=== PATIENT | male | born 1955 | race Caucasian/White ===

== ENCOUNTER → 2018-01-28 | Outpatient (CLI) | payer OTHER | LOC: FIMAGING 06:23 | PROVIDERS: ATTEND Surgery | DX: N20.0 Calculus of kidney (principal); Z90.49 Acquired absence of other specified parts of digestive tract; K44.9 Diaphragmatic hernia without obstruction or gangrene; K21.9 Gastro-esophageal reflux disease without esophagitis ==

== ENCOUNTER → 2018-02-11 | Outpatient (CLI) | payer OTHER | LOC: FIMAGING 14:36 | PROVIDERS: ATTEND Urology | DX: N20.0 Calculus of kidney (principal); I87.8 Other specified disorders of veins ==

== ENCOUNTER 2018-02-26 08:27 | Emergency (ER) | payer OTHER ==
--- NOTE | 2018-02-26 08:40 | EDPHY ---
General Time Seen by Provider: 02/26/18 08:37 Narrative: CHIEF COMPLAINT: Flank pain HISTORY OF PRESENT ILLNESS: Patient presents with complaints of right flank pain. It was sudden onset this morning just prior to arrival. He had just had laboratory studies drawn for preoperative workup for a scheduled hiatal hernia repair on Wednesday. He was feeling well when he left, but while driving he had a sudden onset of pain in the right flank. It is severe, 10/10. Constant. Associated with nausea, vomiting diarrhea. No position of comfort. No chest pain shortness of breath. No abdominal pain. No testicular pain. No other associated complaints or modifying factors. REVIEW OF SYSTEMS: Ten systems reviewed and are negative unless otherwise noted in the HPI PCP: [facility] SPECIALISTS: Dr. Ramirez, Urology Dr. Jackson, General surgery PAST MEDICAL HISTORY: BPH, hiatal hernia, nephrolithiasis, hypertension PAST SURGICAL HISTORY: No recent. Scheduled for Shima fundoplication on Wednesday SOCIAL HISTORY: Non smoker. Works here at [employer] FAMILY HISTORY: non contributory EXAMINATION General Appearance: Alert, no distress Head: normocephalic, atraumatic Eyes: Pupils equal and round, no conjunctival pallor or injection ENT, Mouth: Mucous membranes moist Neck: Normal inspection, supple, non-tender Respiratory: Lungs are clear to auscultation Cardiovascular: Regular rate and rhythm Gastrointestinal: Abdomen is soft and nontender. No distention or tympany. There is moderate right CVA tenderness. No guarding of the abdomen Back: non-tender, no bony abnormalities Neurological: A&O, nonfocal, normal gait Skin: Warm and dry, no rash no petechiae or purpura. No ecchymosis Extremities: Nontender, no pedal edema Psychiatric: Mood and affect normal DIFFERENTIAL DIAGNOSES: Including but not limited to renal colic, ureteral stones, cholecystitis, cholelithiasis, colitis, UTI, pyelonephritis MDM: 8:45 a.m. Right flank pain with history exam that suggest renal colic. Patient has extensive experience with this and underwent lithotripsy on the 09 of February with no improvement. He has a benign abdominal exam with moderate right CVA tenderness otherwise. He is in no acute distress but does appear to be in significant pain, thus I have ordered IV pain medication, lidocaine, fluids and laboratory studies. 9:12 a.m. Patient re-evaluated. Pain has minimally improved. His initial IV is infusing fluids, thus a 2nd IV is being placed for IV fluid resuscitation. We will continue to medicate him. 9:40 a.m. Patient's creatinine is 1.1. He has yet been able to provide a urine sample. I have re-evaluated the patient and ordered Toradol as his pain is not yet improving. He just received his 2nd dose of Dilaudid IV. 10:20 a.m. Patient has received 2 L IV fluid resuscitation and is not yet able to urinate. We will perform bladder scanner. I have re-evaluated at this time and his pain is significantly improved. 10:50 a.m. Patient has provided a urine sample. The bladder scan showed minimal urine in the bladder. He is actively vomiting at this time and does not feel that he is able to go home. I will discuss with his urologist 11:40 a.m. I have not yet discussed the case with Urology as were waited call. The patient is asking for CT scan at this time. 12:45 p.m. Notified by radiologist Dr. Berman. CT scan reveals a 6 mm stone in the proximal right ureter with mild hydronephrosis. 12:50 p.m. Patient re-evaluated and I have discussed the case with the on-call urologist Dr. Rojas. The patient is feeling well enough that he would like to go home. Mildly nauseated but his pain is currently 1/10. The CT scan results were discussed with him. I did offer admission to the hospital for pain control but he would like to go home. He says that he is competent that he will be able to pass this at home. He will be provided a prescription of pain medication nausea medication. Strict ED precautions for difficulty urinating, increasing flank pain, fever or chills. Both he and his spouse are comfortable this plan. He is discharged home stable condition. SUPERVISION: Patient was independently examined, but I discussed the case with my secondary supervising physician Dr. Cook - Diagnostics Imaging Results: Imaging Impressions Abdomen/Pelvis CT 02/26/18 11:40 Impression:1. Obstructing right ureteral stone in a patient with bilateral nephrolithiasis. 2. Diverticulosis without evidence of diverticulitis. 3. Normal appendix. 4. Stable benign lytic lesions in L3 and L1 vertebral bodies. These were felt to represent hemangiomas on MRI of May 2015. Results called and discussed with uQoc Davis, at 02/26/2018 12:40 Attention: This CT examination is specifically designed to evaluate patients who are clinically suspected of having acute obstructive uropathy. This examination does not use radiographic contrast, and as such, provides only a limited evaluation of the abdomen, pelvis and retroperitoneum. If there is further clinical suspicion for pathological conditions other than obstructive uropathy, a complete CT evaluation of the abdomen and pelvis utilizing intravenous, oral, and rectal contrast should be considered. General information for patients regarding this examination can be found at [email or web address]. If you have questions or comments about this report, please contact me at (hospital) or [phone] (cell). - History Smoking Status: Never smoked - Objective Vital Signs: Initial Vital Signs Temperature (C) 97.9 F 02/26/18 08:31 Heart Rate 64 02/26/18 08:31 Respiratory Rate 16 02/26/18 08:31 Blood Pressure 137/80 H 02/26/18 08:31 O2 Sat (%) 97 02/26/18 08:31 O2 Delivery Mode Room Air O2 (L/minute) 2 Allergies/Adverse Reactions: No Known Allergies Allergy (Verified 02/26/18 08:30) Home Medications: Medication Instructions Recorded Lisinopril [Zestril 10 mg (*)] 10 mg PO DAILY 03/27/11 Tamsulosin HCl [Flomax] 0.4 mg PO BID 03/27/11 Finasteride 06/16/15 Omeprazole 06/16/15 Ondansetron Odt [Zofran Odt] 4 mg PO Q4PRN PRN #4 tab 06/16/15 Ondansetron Odt [Zofran Odt 4 mg 4 mg PO Q6 PRN #12 tab 02/26/18 (*)] oxyCODONE HCL/ACETAMINOPHEN 1 each PO Q4-6PRN PRN #13 tablet 02/26/18 [Percocet 5-325 mg Tablet] Laboratory Results: Laboratory Results 02/26/18 08:55 02/26/18 02/26/18 10:48 08:55 Sodium 140 mEq/L mEq/L (135-145) Potassium 4.5 mEq/L mEq/L (3.5-5.2) Chloride 106 mEq/L mEq/L (97-110) Carbon Dioxide 22 mEq/l mEq/l (22-31) Anion Gap 12 mEq/L mEq/L (8-16) BUN 22 mg/dL mg/dL (7-23) Creatinine 1.1 mg/dL mg/dL (0.7-1.3) Estimated GFR > 60 Glucose 129 mg/dL H mg/dL (70-100) Calcium 9.2 mg/dL mg/dL (8.5-10.4) Total Bilirubin 0.7 mg/dL mg/dL (0.1-1.4) Conjugated Bilirubin 0.4 mg/dL mg/dL (0.0-0.5) Unconjugated Bilirubin 0.3 mg/dL mg/dL (0.0-1.1) AST 31 IU/L IU/L (17-59) ALT 47 IU/L IU/L (21-72) Alkaline Phosphatase 46 IU/L IU/L (38-126) Total Protein 6.8 g/dL g/dL (6.3-8.2) Albumin 4.0 g/dL g/dL (3.5-5.0) Lipase 63 IU/L IU/L (23-300) Urine Color YELLOW Urine Appearance HAZY Urine pH 5.0 (5.0-7.5) Ur Specific [place] 1.023 (1.002-1.030) Urine Protein NEGATIVE (NEGATIVE) Urine Ketones NEGATIVE (NEGATIVE) Urine Blood 3+ H (NEGATIVE) Urine Nitrate NEGATIVE (NEGATIVE) Urine Bilirubin NEGATIVE (NEGATIVE) Urine Urobilinogen NEGATIVE EU EU (0.2-1.0) Ur Leukocyte Esterase NEGATIVE (NEGATIVE) Urine RBC 50-182 /hpf H /hpf (0-3) Urine WBC 3-5 /hpf H /hpf (0-3) Ur Epithelial Cells TRACE /lpf /lpf (NONE-1+) Urine Bacteria NONE SEEN /hpf /hpf (NONE SEEN) Urine Mucus 3+ /lpf H /lpf (NONE-1+) Urine Glucose NEGATIVE (NEGATIVE) Medications Given: Discontinued Medications Hydromorphone HCl (Dilaudid) 1 mg IVP EDNOW ONE Stop: 02/26/18 08:46 Last Admin: 02/26/18 09:02 Dose: 0.5 mg Hydromorphone HCl (Dilaudid) 1 mg IVP EDNOW ONE Stop: 02/26/18 09:38 Last Admin: 02/26/18 09:40 Dose: 1 mg Hydromorphone HCl (Dilaudid) 1 mg IVP EDNOW ONE Stop: 02/26/18 11:47 Last Admin: 02/26/18 11:59 Dose: 1 mg Sodium Chloride (Ns) 1,000 mls @ 0 mls/hr IV EDNOW ONE; Wide Open PRN Reason: Protocol Stop: 02/26/18 08:46 Last Admin: 02/26/18 09:24 Dose: 1,000 mls Lidocaine HCl 100 mg/ Sodium (Chloride) 110 mls @ 600 mls/hr IV EDNOW ONE Stop: 02/26/18 08:55 Last Admin: 02/26/18 09:24 Dose: 110 mls Ketorolac Tromethamine (Toradol) 15 mg IVP EDNOW ONE Stop: 02/26/18 09:41 Last Admin: 02/26/18 09:46 Dose: 15 mg Ondansetron HCl (Zofran) 4 mg IVP EDNOW ONE Stop: 02/26/18 08:46 Last Admin: 02/26/18 09:01 Dose: 4 mg Ondansetron HCl (Zofran) 4 mg IVP EDNOW ONE Stop: 02/26/18 10:51 Last Admin: 02/26/18 11:15 Dose: 4 mg Departure - Departure Disposition: Home, Routine, Self-Care Clinical Impression: Renal colic on right side, Ureteral stone with hydronephrosis Condition: Good Instructions: Renal Colic (ED), Hydronephrosis (ED), Ureteral Stones (ED), Ureteral Stent Placement (DC) Additional Instructions: 1. Pain medication as discussed as needed 2. Increase fluid intake 3. Continue your Flomax as previously prescribed 4. Contact your established urologist on Wednesday morning for further care 5. ED precautions for worsening pain, fever, nausea, vomiting or difficulty urinating Referrals: DENZEL MARTIN MD [Other] - As per Instructions Meredith Tatum MD [Medical Doctor] - As per Instructions Prescriptions: Ondansetron Odt [Zofran Odt 4 mg (*)] 4 mg PO Q6 PRN #12 tab PRN Reason: Nausea/Vomiting, Use 1st oxyCODONE HCL/ACETAMINOPHEN [Percocet 5-325 mg Tablet] 1 each PO Q4-6PRN PRN # 13 tablet PRN Reason: Pain, Breakthrough
[2018-02-26] MEDS ORDERED: NS 1,000 ML IV ONE (08:45)
[2018-02-26] MEDS ORDERED: LIDOCAINE 1% 100 MG in NS 100 ML IV ONE (08:45)
[2018-02-26] MEDS ORDERED: ONDANSETRON 4 MG/2 ML VIAL IVP ONE ×2 (08:45→10:50)
[2018-02-26] MEDS ORDERED: HYDROmorphONE/DILAUDID 1 MG/ML INJ IVP ONE (08:45)
[2018-02-26] MEDS ORDERED: HYDROmorphONE/DILAUDID 2 MG/ML INJ ONE (08:59)
[2018-02-26] MEDS ORDERED: HYDROmorphONE/DILAUDID 2 MG/ML INJ IVP ONE ×2 (09:37→11:46)
[2018-02-26] MEDS ORDERED: KETOROLAC 15 MG/1 ML SDV IVP ONE (09:40)
[2018-02-26 13:06] VITALS: BP 136/78
== END 2018-02-26 13:06 | disposition home or self-care (01) ==
DX: N23 Unspecified renal colic (principal); N13.2 Hydronephrosis with renal and ureteral calculous obstruction; E86.9 Volume depletion, unspecified; I10 Essential (primary) hypertension
CPT/HCPCS: 96374; J1170; J1885; J2405

== ENCOUNTER 2018-03-01 08:00 | Observation (INO) | payer OTHER ==
--- NOTE | 2018-03-14 13:13 | GHP ---
[f rep st] PREOP HISTORY AND PHYSICAL DATE OF ADMISSION: 03/15/2018 HISTORY OF PRESENT ILLNESS: The patient is a 62-year-old male who was incidentally found to have a l arge hiatal hernia on a CT scan performed to evaluate renal lithiasis. He does report about 15 years of GERD symptoms characterized by substernal burning. These are becoming less and less controlled w ith omeprazole, which used to work well. He does avoid spicy foods and sleeps with the head of his b ed elevated. He has a past abdominal surgical history of cholecystectomy. He saw us in the office, and we ordered an upper GI series, which shows a moderate sized sliding-type hiatus hernia with mild gastroesophageal reflux. He does have a few tertiary contractions of the esophagus and no definite u lcerations or peptic ulcer disease. He is now here for laparoscopic hiatal hernia repair with Shima fundoplication. Of note, he was scheduled for surgery earlier in the year; however, this was postpo danni due to his renal lithiasis problems. PAST MEDICAL HISTORY: High blood pressure, benign prostatic hyperplasia, GERD, renal lithiasis. PAST SURGICAL HISTORY: Two right shoulder surgeries, left knee scope, cholecystectomy, kidney stone retrieval. MEDICATIONS: Avodart, Flomax, omeprazole, lisinopril. ALLERGIES: No known drug allergies. SOCIAL HISTORY: He is a never smoker. He works in the [employer]. He is and has 2 adult children. FAMILY HISTORY: Noncontributory. REVIEW OF SYSTEMS: 10-point review of systems includes joint pain, high blood pressure, kidney stone s, blood in urine, and frequent urination. PHYSICAL EXAM: GENERAL APPEARANCE: Reveals a 62-year-old male, alert and oriented x3, and in no acu te distress. HEENT: Normocephalic, atraumatic. Sclerae white. CHEST: Clear to auscultation bilat erally. CARDIAC: Regular rate and rhythm. ABDOMEN: Soft, nontender. EXTREMITIES: Warm, well per fused without edema. SKIN: Warm and dry. PSYCH: Normal mood and affect. IMPRESSION: This is a 62-year-old male with a hiatal hernia and symptomatic gastroesophageal reflux disease. PLAN: To proceed with laparoscopic Shima fundoplication and hiatal hernia repair. Again, risks and options were discussed including, but not limited to, bleeding, infection, injury to a nerve, spleni c injury, dysphagia, recurrent reflux, conversion to open procedure, and other problems including gas and bloating problems, and he requests to proceed. /[id number]/MODL
[2018-03-15] MEDS ORDERED: cefOXitin SODIUM 2 GM in STERILE WATER INJ 21 ML IV ONE (06:00)
[2018-03-15] MEDS ORDERED: HEPARIN 1000 UNIT/1 ML MDV ONE (09:59)
[2018-03-15] MEDS ORDERED: ceFAZolin 1 GM/5 ML SYR ONE (09:59)
[2018-03-15] MEDS ORDERED: BUPIVACAINE 0.5% 30 ML SDV ONE (09:59)
[2018-03-15] MEDS ORDERED: LR 1,000 ML IV ONE (10:20)
--- NOTE | 2018-03-15 10:42 | PDHPUP ---
History & Physical Update H&P update statement: This history and physical update is based on an assessment of the patient which was completed after admission or registration (within 24 hours), but prior to the surgery/procedure. H&P update: H&P reviewed & patient examined, no change in patient's condition since H&P completed
[2018-03-15] MEDS ORDERED: MIDAZOLAM 2 MG/2 ML VIAL IVP ONE (11:56)
[2018-03-15] MEDS ORDERED: MIDAZOLAM 2 MG/2 ML VIAL ONE (11:59)
--- NOTE | 2018-03-15 11:59 | PDANEPAE ---
ANE Past Medical History - Cardiovascular History Hx Hypertension: Yes Hx Arrhythmias: No Hx Chest Pain: No Hx Coronary Artery / Peripheral Vascular Disease: No Hx CHF / Valvular Disease: No Hx Palpitations: No - Pulmonary History Hx COPD: No Hx Asthma/Reactive Airway Disease: No Hx Recent Upper Respiratory Infection: No Hx Oxygen in Use at Home: No Hx Sleep Apnea: Yes Sleep Apnea Screening Result - Last Documented: Positive - Neurologic History Hx Cerebrovascular Accident: No Hx Seizures: No Hx Dementia: No - Endocrine History Hx Diabetes: No Hypothyroid: No Hyperthyroid: No Obesity: yes, mild - Renal History Hx Renal Disorders: No Renal History Comment: kidney stone - Liver History Hx Hepatic Disorders: No - Neurological & Psychiatric Hx Hx Neurological and Psychiatric Disorders: No - Cancer History Hx Cancer: No - Congenital Disorder History Hx Congenital Disorders: No - GI History GERD: severe Hx Gastrointestinal Disorders: Yes Gastrointestinal History Comment: gerd - Other Health History Other Health History: none - Chronic Pain History Chronic Pain: Yes (knee pain) - Surgical History Prior Surgeries: kidney stone 02/09. right shoulder rotator cuff tear 2015,12/11 ANE Review of Systems Review of Systems: - Exercise capacity METS (RN): 5 METS ANE Patient History - Allergies Allergies/Adverse Reactions: No Known Allergies Allergy (Verified 02/26/18 08:30) - Home Medications Home Medications: Lisinopril [Zestril 10 mg (*)] 10 mg PO DAILY 03/27/11 [Last Taken 03/14/18] Tamsulosin HCl [Flomax] 0.4 mg PO BID 03/27/11 [Last Taken 03/15/18] Finasteride 06/16/15 [Last Taken 03/15/18] Omeprazole 06/16/15 [Last Taken 03/15/18] - NPO status NPO Since - Liquids (Date): 03/14/18 NPO Since - Liquids (Time): 00:00 NPO Since - Solids (Date): 03/14/18 NPO Since - Solids (Time): 00:00 - Anes Hx Anes Hx: post operative nausea and vomiting - Smoking Hx Smoking Status: Never smoked - Alcohol Use Alcohol Use: Occasionally - Family Anes Hx Family Anes Hx: neg - N/A Family Hx Anesthesia Complications: none ANE Labs/Vital Signs - Vital Signs Blood Pressure: 151/89 Heart Rate: 81 Respiratory Rate: 14 O2 Sat (%): 95 Height: 180.34 cm Weight: 97.522 kg ANE Physical Exam - Airway Neck exam: FROM Mallampati Score: Class 2 Mouth exam: normal dental/mouth exam - Pulmonary Pulmonary: no respiratory distress, no rales or rhonchi, clear to auscultation - Cardiovascular Cardiovascular: regular rate and rhythym, no murmur, rub, or gallop ANE Anesthesia Plan Anesthesia Plan: general endotracheal anesthesia Total IV Anesthesia: No
[2018-03-15] MEDS ORDERED: fentaNYL 100 MCG/2 ML INJ ONE ×3 (12:10→14:16)
[2018-03-15] MEDS ORDERED: PROPOFOL/EMULSION 500 MG/50 ML BOTTLE IV ONE (12:12)
[2018-03-15] MEDS ORDERED: ROCURONIUM 50 MG/5 ML VIAL ONE ×2 (12:12→12:55)
[2018-03-15] MEDS ORDERED: LIDOCAINE 2% 5 ML SDV ONE (12:12)
[2018-03-15] MEDS ORDERED: ONDANSETRON 4 MG/2 ML VIAL ONE (12:12)
[2018-03-15] MEDS ORDERED: DEXAMETHASONE 4 MG/ML VIAL ONE (12:13)
[2018-03-15] MEDS ORDERED: RANITIDINE 50 MG/2 ML VIAL ONE (12:14)
[2018-03-15] MEDS ORDERED: PHENYLEPHRINE HCL 100 MCG/ML SYR ONE ×2 (12:27→12:48)
[2018-03-15] MEDS ORDERED: LR 500 ML IV PRN (12:45)
[2018-03-15] MEDS ORDERED: ONDANSETRON 4 MG/2 ML VIAL IVP PRN ×2 (12:45→14:01)
[2018-03-15] MEDS ORDERED: HYDROCODONE/APAP 5/325 TAB PO PRN (12:45)
[2018-03-15] MEDS ORDERED: ACETAMINOPHEN 500 MG TAB PO PRN (12:45)
[2018-03-15] MEDS ORDERED: PROMETHAZINE HCL 25 MG/ML INJ IVP PRN (12:45)
[2018-03-15] MEDS ORDERED: NALOXONE HCL 0.4 MG/ML INJ IVP PRN (12:45)
[2018-03-15] MEDS ORDERED: oxyCODONE IR 5 MG TAB PO PRN (12:45)
[2018-03-15] MEDS ORDERED: PHENYLEPHRINE HCL 100 MCG/ML SYR IVP PRN (13:00)
[2018-03-15] MEDS ORDERED: epHEDrine SULFATE 10 MG/ML SYR IVP PRN (13:00)
[2018-03-15] MEDS ORDERED: PHENYLEPHRINE 10 MG/ML SDV ONE (13:19)
[2018-03-15] MEDS ORDERED: REMIFENTANIL HCL 1 MG VIAL ONE (13:32)
[2018-03-15] MEDS ORDERED: PROPOFOL 200 MG/20 ML VIAL ONE (13:32)
[2018-03-15] MEDS ORDERED: SUGAMMADEX SODIUM 200 MG/2 ML VIAL IVP ONE (13:53)
--- NOTE | 2018-03-15 14:01 | POSTOPPROG ---
Post Op Note Date of Operation: 03/15/18 Surgeon: Keith Jackson Print Graphic Designer: Sara Dorman Anesthesiologist: Jake Ngo Anesthesia: GET(General Endotracheal) Pre-op Diagnosis: hiatal hernia, GERD Post-op Diagnosis: same, and umbilical hernia Procedure: laparoscopic hiatal hernia repair c Shima fundo, umbilical hernia repair Findings: 1/3 of stomach in chest. 1 cm umbilical defect Inf/Abcess present in the surg proc area at time of surgery?: No EBL: Minimal Complications: none Specimen(s): none
[2018-03-15] MEDS ORDERED: OXYCODONE/APAP 5/325 TAB PO PRN (14:04)
[2018-03-15] MEDS: D5W 1/2 NS W/ 20 KCl/L 1,000 ML IV SCH (14:15)
[2018-03-15] MEDS ORDERED: HYDROmorphONE/DILAUDID 1 MG/ML INJ ONE (14:16)
[2018-03-15] MEDS: fentaNYL 100 MCG/2 ML INJ IVP PRN ×3 (14:18→14:31)
[2018-03-15] MEDS: HYDROmorphONE/DILAUDID 2 MG/ML INJ IVP PRN ×4 (14:18→14:59)
[2018-03-15] MEDS ORDERED: oxyCODONE IR 5 MG TAB ONE (14:58)
[2018-03-15] MEDS ORDERED: ACETAMINOPHEN 500 MG TAB ONE (14:58)
--- NOTE | 2018-03-15 15:12 | POSTANESTH ---
Post Anesthetic Evaluation Cardiovascular Status: Normal, Stable Respiratory Status: Normal, Stable Level of Consciousness/Mental Status: Can Participate in Eval Pain Control: Adequate, Prn Tx Ordered Nausea/Vomiting Control: Adequate, Prn Tx Ordered Complications Possibly Related to Anesthesia: None Noted
--- NOTE | 2018-03-15 16:47 | SOAPPROG ---
SOAP Progress Note Assessment/Plan: Assessment: POSTOP DOING WELL/BREATH SOUNDS EQUAL/DRESSINGS DRY AND INTACT Plan: CLEARS IN THE A.M. 03/15/18 16:46 Objective: Vital Signs Temp Pulse Resp BP Pulse Ox 36.4 C 68 16 147/90 H 92 03/15/18 15:43 03/15/18 15:43 03/15/18 15:43 03/15/18 15:43 03/15/18 15:43 03/14/18 03/15/18 03/16/18 05:59 05:59 05:59 Intake Total 1600 Balance 1600 ICD10 Worksheet Patient Problems: Problems Problem Status Onset GERD (gastroesophageal reflux disease) Acute - ICD10 Problem Qualifiers (1) GERD (gastroesophageal reflux disease)
[2018-03-15] MEDS: HYDROmorphONE/DILAUDID 1 MG/ML INJ IVP PRN ×2 (17:14→20:46)
[2018-03-15] MEDS: KETOROLAC 15 MG/1 ML SDV IVP SCH ×2 (17:18→21:20)
[2018-03-15] MEDS: TAMSULOSIN HCL 0.4 MG CAP PO SCH (20:07)
[2018-03-15] MEDS ORDERED: LISINOPRIL 40 MG TAB PO SCH (21:00)
[2018-03-16] MEDS: HYDROmorphONE/DILAUDID 1 MG/ML INJ IVP PRN (00:17)
[2018-03-16] MEDS: D5W 1/2 NS W/ 20 KCl/L 1,000 ML IV SCH (00:18)
[2018-03-16] MEDS: KETOROLAC 15 MG/1 ML SDV IVP SCH ×2 (05:02→08:01)
[2018-03-16] MEDS: TAMSULOSIN HCL 0.4 MG CAP PO SCH (08:02)
--- NOTE | 2018-03-16 08:26 | SOAPPROG ---
EDEN Progress Note Assessment/Plan: Assessment: 62 y/o M s/p janelle fundoplication and hiatal hernia repair POD #1 S: Doing very well. Tolerating clear liquids well and starting to pass flatus. No BM yet. Pain well controlled on oral pain meds. Eager to go home. O: Alert Afebrile Cardiac: RRR Chest: CTA bilaterally Abdomen: distended, but soft, hypoactive bowel sounds. Incisions cdi. Mildly tender to palpation throughout Plan: Advance diet as tolerated. Advised pt to get up and walk as much as possible today. Discussed going home tomorrow, possibly today if pt is feeling up to it. 03/16/18 08:23 Objective: Vital Signs Temp Pulse Resp BP Pulse Ox 36.8 C 74 16 145/91 H 94 03/16/18 07:28 03/16/18 07:28 03/16/18 07:28 03/16/18 07:28 03/16/18 07:28 Laboratory Results 03/16/18 04:45 03/16/18 04:45 03/15/18 03/16/18 03/17/18 05:59 05:59 05:59 Intake Total 3721.5 Output Total 0 Balance 3721.5 ICD10 Worksheet Patient Problems: Problems Problem Status Onset GERD (gastroesophageal reflux disease) Acute
[2018-03-16] MEDS ORDERED: FINASTERIDE 5 MG TAB PO SCH (09:00)
[2018-03-16 11:27] VITALS: BP 143/91
--- NOTE | 2018-03-16 11:48 | ASMTCMCOM ---
CM Note CM Note Notes: Spoke w/ RN, anticipate pt will dc home w/support of when medically stable. CM available for any changes. DC Plan: Independent Date Signed: 03/16/2018 11:48 AM Electronically Signed By:Georgia Garcia RN
--- NOTE | 2018-03-16 15:24 | GOP ---
[f rep st] OPERATIVE REPORT DATE OF OPERATION: 03/15/2018 SURGEON: Keith Jackson MD IMMIGRATION INSPECTOR: MERRY De La Garza. ANESTHESIA: Fernando Ngo DO. PREOPERATIVE DIAGNOSIS: Gastroesophageal reflux disease and umbilical hernia. POSTOPERATIVE DIAGNOSIS: Gastroesophageal reflux disease and umbilical hernia. PROCEDURE PERFORMED: 1. Laparoscopic hiatal hernia repair and Shima fundoplication. 2. Open umbilical hernia repair. FINDINGS: Patient was found to have a 1.5 cm umbilical hernia defect with some incarcerated preperit parrish fat. Also had a moderate size hiatal hernia which was easily reduced. DESCRIPTION OF PROCEDURE: The patient was taken to the operating room where he received a satisfacto ry general endotracheal anesthesia by Dr. Ngo. He was placed in the supine position in the l ow split-leg stirrups. Prepped and draped in the usual sterile fashion. Epigastric incision was mad e. A Veress needle inserted. Pneumoperitoneum was established. Trocar was introduced. Laparoscope was introduced. Good visualization was obtained. Four other trocars were placed in the upper abdom en under direct vision. The stomach was then reduced out of the chest, exposing the gastroesophageal hiatus. This was further exposed by dividing the gastrohepatic ligament. Both diaphragmatic crura were then skeletonized with the Harmonic Scalpel, and a retroesophageal tunnel was created. The esop hagus was easily mobilized and brought down in the stomach and was mobilized up in the chest for at l east 2 inches. The crura were approximated with 0 Ethibond sutures, snugging up the esophageal hiatu s, and the stomach was easily pulled down into the abdomen. The crural closure was done with a 52 sunil ugie dilator. The greater curvature was mobilized by dividing the short gastrics with Harmonic Scalp el, and then a Shima wrap was passed through the retroesophageal tunnel. The 3 cm Shima wrap was t hen created with interrupted 0 Ethibond sutures securing the anterior wall of the stomach to the ante rior wall of the esophagus to the Shima wrap. Three of these sutures were placed, creating a loose, floppy Shima. The bougie was removed. The hemostasis was assured. The liver retractor was remove d and trocars removed under direct vision. Trocar sites were closed with 4-0 Monocryl subcuticular s titch for the skin. All layers infiltrated with 0.5% Marcaine. Attention was then turned to the umbilical hernia. A curvilinear incision was made at the base of th e umbilicus. Dissection extended down through the subcutaneous tissue, and the umbilical hernia sac was dissected free from surrounding subcutaneous tissue and from the back of the umbilical skin. The sac was opened. Its contents were reduced. The defect was closed with interrupted 0 Surgilon figur e-of-eight sutures. Wound was further infiltrated with 0.5% Marcaine and then closed with 3-0 Vicryl for the subcutaneous tissue and 4-0 Monocryl subcuticular stitch for the skin. He tolerated procedu re well, taken to recovery room in good condition with no complications. /[id number]/MODL
[2018-03-17] MEDS ORDERED: ENOXAPARIN 40 MG/0.4 ML SYR SC SCH (09:00)
== END 2018-03-16 14:16 | disposition left against medical advice (07) ==
LOC: F3N 03-15 09:44 → F3E 03-15 15:36
PROVIDERS: ADMIT Surgery; ATTEND Surgery
DX: K44.9 Diaphragmatic hernia without obstruction or gangrene (principal); K42.9 Umbilical hernia without obstruction or gangrene; K21.9 Gastro-esophageal reflux disease without esophagitis
CPT/HCPCS: 43280; 49585; G0378; J0694; J1100; J1170; J1885; J2250; J2370; J2405; J2704; J2780; J3010

== ENCOUNTER → 2018-09-23 | Outpatient (CLI) | payer OTHER | LOC: FIMAGING 14:43 | PROVIDERS: ATTEND Orthopaedic Surgery | DX: M17.12 Unilateral primary osteoarthritis, left knee (principal) ==

== ENCOUNTER 2018-10-12 08:42 | Observation (INO) | payer OTHER ==
[~2018-10-12 08:42] MED LIST: DEXAMETHASONE 4 MG/ML VIAL ONE; LIDOCAINE 2% 5 ML SDV ONE; ONDANSETRON 4 MG/2 ML VIAL ONE; PROPOFOL/EMULSION 500 MG/50 ML BOTTLE IV ONE; ROPIVACAINE 0.2% 80 MG, EPINEPHrine 0.2 MG, KETOROLAC TROMETHAMINE 30 MG in SYRINGE 0 ML IU ONE; TRANEXAMIC ACID 3,000 MG in NS (SYRINGE) 50 ML IRR ONE; TRANEXAMIC ACID 3,000 MG/50 ML BAG IRR ONE; fentaNYL 100 MCG/2 ML INJ ONE
[2018-10-12] MEDS ORDERED: ACETAMINOPHEN 325 MG TAB PO ONE (09:21)
[2018-10-12] MEDS ORDERED: DEXAMETHASONE 4 MG/ML VIAL IVP ONE (09:21)
[2018-10-12] MEDS ORDERED: FAMOTIDINE 20 MG TAB PO ONE (09:21)
[2018-10-12] MEDS ORDERED: ceFAZolin 2 GM/DEXTROSE 100 ML IV ONE (09:21)
[2018-10-12] MEDS ORDERED: LIDOCAINE 1% 2 ML INJ ID PRN (09:22)
[2018-10-12] MEDS ORDERED: LR 1,000 ML IV ONE (09:22)
--- NOTE | 2018-10-12 10:05 | PDANEPAE ---
ANE History of Present Illness L knee DJD, here for L TKA ANE Past Medical History - Cardiovascular History Hx Hypertension: Yes Hx Arrhythmias: No Hx Chest Pain: No Hx Coronary Artery / Peripheral Vascular Disease: No Hx CHF / Valvular Disease: No Hx Palpitations: No - Pulmonary History Hx COPD: No Hx Asthma/Reactive Airway Disease: No Hx Recent Upper Respiratory Infection: No Hx Oxygen in Use at Home: No Hx Sleep Apnea: Yes Sleep Apnea Screening Result - Last Documented: Positive Pulmonary History Comment: POS SLEEP APNEA W/CPAP - Neurologic History Hx Cerebrovascular Accident: No Hx Seizures: No Hx Dementia: No - Endocrine History Hx Diabetes: No - Renal History Hx Renal Disorders: No Renal History Comment: kidney stone - Liver History Hx Hepatic Disorders: No Hepatic History Comment: CHOLECYSTECTOMY - Neurological & Psychiatric Hx Hx Neurological and Psychiatric Disorders: No - Cancer History Hx Cancer: No - Congenital Disorder History Hx Congenital Disorders: No - GI History Hx Gastrointestinal Disorders: Yes Gastrointestinal History Comment: gerd - Other Health History Other Health History: none - Chronic Pain History Chronic Pain: Yes (knee pain) - Surgical History Prior Surgeries: kidney stone 02/09. right shoulder rotator cuff tear 2015,12/11 ANE Review of Systems Review of Systems: - Exercise capacity METS (RN): 5 METS ANE Patient History - Allergies Allergies/Adverse Reactions: No Known Allergies Allergy (Verified 02/26/18 08:30) - Home Medications Home Medications: Tamsulosin HCl [Flomax 0.4 MG (*)] 0.4 mg PO BID 03/27/11 [Last Taken 10/12/18 06:30] Finasteride [Proscar 5 MG (*)] 5 mg PO DAILY 03/15/18 [Last Taken 10/12/18 06:30 ] Lisinopril [Zestril 40 mg (*)] 40 mg PO HS 03/15/18 [Last Taken 10/12/18 06:30] Naproxen Sodium [Aleve 220 MG (*)] 220 mg PO BID PRN 09/20/18 [Last Taken ] - Smoking Hx Smoking Status: Never smoked - Family Anes Hx Family Hx Anesthesia Complications: none ANE Labs/Vital Signs - Vital Signs Height: 180.34 cm Weight: 97.069 kg ANE Physical Exam - Airway Neck exam: FROM Mallampati Score: Class 2 Mouth exam: normal dental/mouth exam - Pulmonary Pulmonary: no respiratory distress - Cardiovascular Cardiovascular: regular rate and rhythym - ASA Status ASA Status: III ANE Anesthesia Plan Anesthesia Plan: general endotracheal anesthesia, GA with mask, spinal Total IV Anesthesia: Yes
[2018-10-12] MEDS ORDERED: MIDAZOLAM 2 MG/2 ML VIAL IVP ONE (10:06)
[2018-10-12] MEDS ORDERED: ONDANSETRON DISINTEGRATING 4 MG TAB PO PRN (11:26)
[2018-10-12] MEDS ORDERED: diphenhydrAMINE 25 MG CAP PO PRN (11:26)
[2018-10-12] MEDS ORDERED: oxyCODONE IR 5 MG TAB PO PRN (11:26)
[2018-10-12] MEDS ORDERED: CYCLOBENZAPRINE 10 MG TAB PO PRN (11:26)
[2018-10-12] MEDS ORDERED: PROMETHAZINE HCL 25 MG SUPPR PR PRN (11:26)
[2018-10-12] MEDS ORDERED: PROMETHAZINE HCL 25 MG/ML INJ IVP PRN (11:26)
[2018-10-12] MEDS ORDERED: METOCLOPRAMIDE 10 MG/2 ML VIAL IVP PRN (11:26)
[2018-10-12] MEDS ORDERED: MAGNESIUM HYDROXIDE 30 ML UDCUP PO PRN (11:26)
[2018-10-12] MEDS ORDERED: LACTULOSE 20 GM/30 ML UDCUP PO PRN (11:26)
[2018-10-12] MEDS ORDERED: ONDANSETRON 4 MG/2 ML VIAL IVP PRN (11:26)
[2018-10-12] MEDS ORDERED: POLYETHYLENE GLYCOL 3350 17 GM PKT PO PRN (11:26)
[2018-10-12] MEDS ORDERED: BISACODYL 10 MG SUPP PR PRN (11:26)
[2018-10-12] MEDS ORDERED: TEMAZEPAM 15 MG CAP PO PRN (11:26)
[2018-10-12] MEDS ORDERED: DIPHENOXYLATE/ATROPINE LOMOTIL 1 TAB PO PRN (11:26)
[2018-10-12] MEDS ORDERED: LR 1,000 ML IV SCH (11:30)
[2018-10-12] MEDS ORDERED: PROPOFOL 200 MG/20 ML VIAL ONE (12:09)
[2018-10-12] MEDS ORDERED: NALOXONE HCL 0.4 MG/ML INJ IVP PRN (12:31)
[2018-10-12] MEDS ORDERED: HYDROmorphONE/DILAUDID 2 MG/ML INJ IVP PRN (12:31)
[2018-10-12] MEDS ORDERED: MEPERIDINE 25 MG/0.5 ML AMP IVP PRN (12:31)
[2018-10-12] MEDS ORDERED: fentaNYL 100 MCG/2 ML INJ IVP PRN (12:31)
--- NOTE | 2018-10-12 12:35 | POSTOPPROG ---
Post Op Note Date of Operation: 10/12/18 Surgeon: Adam Gutierrez Venipuncturist: sol gutierrez PAC Anesthesiologist: dr. guevara Anesthesia: Spinal, Other (Specify) (adductor canal block) Pre-op Diagnosis: left knee OA Post-op Diagnosis: same Indication: left knee pain Procedure: L TKA robot assisted, sensor assisted Findings: severe knee OA Inf/Abcess present in the surg proc area at time of surgery?: No EBL: 50-100
[2018-10-12] MEDS: ACETAMINOPHEN 325 MG TAB PO SCH ×3 (13:35→23:25)
[2018-10-12] MEDS: ceFAZolin 2 GM/DEXTROSE 100 ML IV SCH (19:57)
[2018-10-12] MEDS: SENNOSIDES/DOCUSATE SODIUM TAB PO SCH (20:59)
[2018-10-12] MEDS: TAMSULOSIN HCL 0.4 MG CAP PO SCH (20:59)
[2018-10-12] MEDS: ASPIRIN 81 MG CHEWABLE TAB PO SCH (20:59)
[2018-10-12] MEDS: FAMOTIDINE 20 MG TAB PO SCH (21:00)
[2018-10-12] MEDS ORDERED: LISINOPRIL 40 MG TAB PO SCH (21:00)
[2018-10-13] MEDS: ceFAZolin 2 GM/DEXTROSE 100 ML IV SCH (02:33)
[2018-10-13] MEDS: ACETAMINOPHEN 325 MG TAB PO SCH ×2 (05:14→11:38)
[2018-10-13 08:16] VITALS: BP 108/76
[2018-10-13] MEDS ORDERED: FINASTERIDE 5 MG TAB PO SCH (09:00)
[2018-10-13] MEDS: ASPIRIN 81 MG CHEWABLE TAB PO SCH (09:55)
[2018-10-13] MEDS: TAMSULOSIN HCL 0.4 MG CAP PO SCH (09:56)
[2018-10-13] MEDS: SENNOSIDES/DOCUSATE SODIUM TAB PO SCH (09:56)
[2018-10-13] MEDS: FAMOTIDINE 20 MG TAB PO SCH (09:56)
--- NOTE | 2018-10-13 10:14 | ASDISCHSUM ---
Discharge Information Plan Status:Home with No Needs Medically Cleared to Leave:10/12/2018 Discharge Date:10/12/2018 CM D/C Disposition:Home, Routine, Self-Care ADT D/C Disposition:Home, Routine, Self-Care Projected Discharge Date:10/12/2018 Transportation at D/C: Discharge Delay Reason: Follow-Up Date:10/12/2018 Discharge Slot: Final Diagnosis: Placement Information Patient Contact Information Contact Name:EMILEE Relationship: Address:[address] Work Phone: City:[facility] Alternate Phone: State/Zip Code:[place] [address] Email: Financial Information Financial Class:Skylar Fischer Primary Plan Desc:[facility] [employer] LOCAL Primary Plan Number:[id number] Secondary Plan Desc: Secondary Plan Number: Assessment Information LACE LACE Length of stay for Answers: 1 day current admission Acuity / Level of Answers: No Care: Did the patient have an inpatient admission? Comorbidities - select Answers: Opioid dependence all that apply / Chronic pain Other Notes: HTN; GERD # of Emergency department Answers: 0 visits in the last 6 months Score: 6 Date Signed: 10/13/2018 10:14 AM Electronically Signed By:Dania Soler RN Intervention Information
--- NOTE | 2018-10-13 13:27 | SOAPPROG ---
SOAP Progress Note Assessment/Plan: Assessment: Patient is doing well POD 1 s/p L TKA Pain management: pain is well controlled on oral pain meds. VTE ppx: recommend aspirin 81 mg BID for 4 weeks, cont MASHA and SCDs Anemia: level is expected initially postop. Asymptomatic. Continue to monitor D/c planning: Patient has done better than anticipated and would like to be discharged to home today. Patient must be released from PT before discharge to home. Plan: 10/13/18 13:24 Subjective: patient is doing well, denies SOB, chest pain and n/v Objective: Vital Signs Temp Pulse Resp BP Pulse Ox 37.0 C 89 13 108/76 92 10/13/18 08:00 10/13/18 08:00 10/13/18 08:00 10/13/18 08:00 10/13/18 08:00 Laboratory Results 10/13/18 05:00 10/12/18 10/13/18 10/14/18 05:59 05:59 05:59 Intake Total 2505 Output Total 575 Balance 1930 LLE: incision dressing is clean and dry, NVI, +pf/df ICD10 Worksheet Patient Problems: Problems Problem Status Onset GERD (gastroesophageal reflux disease) Acute Primary localized osteoarthritis of left knee Acute
--- NOTE | 2018-10-16 20:54 | GOP ---
DATE OF OPERATION: 10/12/2018 SURGEON: Harpreet Barrera MD FENCE LABORER: Evangelina Barrera, MERRY ANESTHESIA: Spinal. PREOPERATIVE DIAGNOSIS: Left knee osteoarthritis. POSTOPERATIVE DIAGNOSIS: Left knee osteoarthritis. PROCEDURE PERFORMED: Left total knee arthroplasty with computer navigation, robotic assist. FINDINGS: ESTIMATED BLOOD LOSS: 30 cc. INDICATIONS: The patient is a 63-year-old male with severe and progressive pain and deformity of the left knee unresponsive to conservative care. The risks and benefits of surgical intervention were e xplained in detail. DESCRIPTION OF PROCEDURE: The patient was brought to the operative room and placed on the table in t he supine position. Spinal anesthesia was induced without difficulty. A pneumatic tourniquet was appl ied about the left proximal thigh, and the leg was prepped and draped in a sterile fashion. The leg h older was applied. After exsanguination by elevation the tourniquet was inflated to 250 mmHg. Incision was made anterior medial from the tibial tuberosity to a point 2 cm proximal to the superior pole of the patella. Medial parapatellar arthrotomy was carried out from the superior pole of the pa tella and posteriorly in line with the fibers of the Type II VMO. The medial collateral ligament was elevated and the infrapatellar fat pad was resected. The patella was everted and the articular surface was excised. A 38 mm patellar button was placed. Attention was turned first to the distal aspect of the femur. After exposure of the femur, 2 half pi ns were placed for fixation of the femoral array. In a similar fashion, 2 pins were placed anteromed ial on the tibia for fixation of the tibial array. External land marking and registration of the hip center was performed without difficulty. Internal femoral and tibial registration was carried out w ithout difficulty and the femoral and tibial checkpoints were placed and verified for accuracy. Attention was turned to the femur. The foot print for the size 5 femoral component was cut with the saw using the [employer] robotic system and verified for accuracy against the CT based plan. In a similar f ashion, the saw was used to cut the footprint for the size 6 tibial component using the [employer] system an d verified for accuracy against the CT based plan. The tibial articular surface was excised without d ifficulty, followed by the intercondylar box cut. The knee was extended and the remnants of the medial and lateral meniscus were excised. The posterior capsule was injected with ropivacaine, epinephrine and Toradol. A size 6 tibial tray was positioned . Trial reduction was then carried out. There was excellent range of motion, alignment, and stability using the 6 x 9 mm polyethylene. All trials were then removed. The joint was thoroughly irrigated and carefully dried. The press-fit c omponents were implanted. The permanent 6 x 9 mm polyethylene was placed without difficulty. The tourniquet was deflated and all bleeders were coagulated. The wound was thoroughly irrigated and closed using interrupted sutures of 2-0 Vicryl for the joint capsule. The subcu was closed with 3-0 V icryl and the skin with 4-0 Monocryl. Dermabond and Steri-Strips were applied followed by a compress joy dressing. The patient was then moved from the operating room to the recovery room in good conditi on, having tolerated the procedure well. PATHOLOGY: Severe medial and patellofemoral osteoarthritis. /[id number]/MODL
== END 2018-10-13 11:59 | disposition home or self-care (01) ==
LOC: INTOOBSV 08:42 → F3N 08:42
PROVIDERS: ATTEND Orthopaedic Surgery
PROC: 0SRD0JZ Replacement of Left Knee Joint with Synthetic Substitute, Open Approach (ICD-10-PCS; principal; 2018-10-12 11:00)
DX: M17.12 Unilateral primary osteoarthritis, left knee (principal)
CPT/HCPCS: 27447; 73560; 97110; 97116; 97161; G0378; J0171; J0690; J1100; J1885; J2250; J2405; J2704; J2795; J3010